=== PATIENT | male | born 1990 | race African-American/Black ===

== ENCOUNTER 2018-02-18 21:57 | Emergency (ER) | payer OTHER ==
[~2018-02-18] VITALS: Ht 177.8 cm; Wt 133.8 kg
[2018-02-18 22:30] VITALS: BP 156/99
[2018-02-18] MEDS ORDERED: IBUPROFEN600 MG ORAL (22:44)
[2018-02-18 23:02] VITALS: BP 156/99
--- NOTE | 2018-02-19 00:01 | Emergency Room Report ---
History of Present Illness General Chief Complaint: Sore Throat Source: Patient Present Illness HPI 27-year-old male presents with sore throat for 2 days. States sore throat, +mild dry cough. Pain with swallowing however has still been able to eat/drink. No change in voice. No pain with extension/movement of neck. Denies fever or chills. No sick contacts. Allergies: Coded Allergies: No Known Allergies (Unverified , 02/18/18) Patient History Past Medical History: see triage record Past Surgical History: none Pertinent Family History: none Reviewed Nursing Documentation: PMH: Agreed; PSxH: Agreed Nursing Documentation-PMH Hx Asthma: Yes Review of Systems All Other Systems: negative except mentioned in HPI Physical Exam Vital Signs Date Time Temp Pulse Resp B/P (MAP) Pulse Ox O2 Delivery O2 Flow Rate FiO2 02/18/18 22:05 98.6 89 18 156/99 99 Room Air 98.6 Sp02 EP Interpretation: reviewed, normal General Appearance: alert, GCS 15, non-toxic, mild distress Head: normocephalic, atraumatic Eyes: bilateral eye normal inspection, bilateral eye PERRL, bilateral eye EOMI ENT: tonsillar swelling, pharyngeal erythema, other - no exudate no 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 Neck: normal inspection, full range of motion, supple Respiratory: normal inspection, lungs clear, normal breath sounds, no respiratory distress, no retraction, no wheezing, speaking full sentences, chest symmetrical Cardiovascular #1: normal inspection, regular rate, rhythm, no edema, normal capillary refill Cardiovascular #2: 2+ radial (R), 2+ radial (L) Gastrointestinal: normal inspection, non tender, soft, non-distended, no guarding Genitourinary: no CVA tenderness Musculoskeletal: normal inspection, back normal, normal range of motion, non- tender Neurologic: normal inspection, alert, oriented x3, responsive, motor strength/ tone normal, sensory intact, normal gait, speech normal Psychiatric: normal inspection, judgement/insight normal, memory normal Skin: normal inspection, normal color, no rash, warm/dry, well hydrated, normal turgor Medical Decision Making Diagnostic Impression: Primary Impression: Pharyngitis ER Course 27-year-old male with sore throat DDX: Viral vs. infectious mononucleosis vs. bacterial pharyngitis vs. allergies Other serious causes such as 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 / RPA / deep space neck infection history/physical most consistent with viral pharyngitis Plan: Motrin,. Abx not indicated at this time ER course: Patient remains stable in ED. Pt states improvement of pain with motrin. Disposition: Patient will be discharged to home. Patient will follow up with primary care doctor within 5 days. Strict return precautions discussed with patient such as worsening throat pain/swelling, dysphagia, high fever or chills, shortness of breath, abdominal pain, which may indicate severe illness. Patient verbalized understanding and agreed with plan. Please note that this Emergency Department Report was dictated using [employer] collector technology software, occasionally this can lead to erroneous entry secondary to interpretation by the dictation equipment. Last Vital Signs Date Time Temp Pulse Resp B/P (MAP) Pulse Ox O2 Delivery O2 Flow Rate FiO2 02/18/18 23:02 98.6 89 18 156/99 99 Room Air Disposition: HOME, SELF-CARE Condition: Improved Scripts Ibuprofen* (MOTRIN*) 600 Mg Tablet 600 MG ORAL Q8H PRN for For Pain, #30 TAB 0 Refills Prov: Atif Benavides M.D. 02/18/18 Referrals: [facility] (PCP) Patient Instructions: Pharyngitis, [id number] Atif Benavides M.D. February 19, 2018 00:01
== END 2018-02-18 23:10 | disposition home or self-care (01) ==
LOC: EMR 22:23
DX: J02.9 Acute pharyngitis, unspecified (principal); J45.909 Unspecified asthma, uncomplicated
CPT/HCPCS: 99283